=== PATIENT | female | born 1990 | race Two or more races ===

== ENCOUNTER 2021-12-06 22:13 | Emergency (ER) | payer SELFPAY ==
[~2021-12-06] VITALS: Ht 170.2 cm; Wt 61.0 kg
[2021-12-06 22:13] VITALS: BP 162/105
[2021-12-07 03:13] LABS: Urine Amorphous Crystal FEW /hpf (None Seen); Urine Bacteria MOD /hpf (None Seen); Urine Blood Negative /uL (Negative); Urine Mucus FEW (None Seen); Urine Specific Gravity 1.009 (1.001-1.035); Urine WBC 12 /hpf (0 - 5)
== END 2021-12-07 05:07 | disposition left against medical advice (07) ==
LOC: ER 22:13
DX: R10.9 Unspecified abdominal pain (principal); R20.2 Paresthesia of skin; Z53.21 Procedure and treatment not carried out due to patient leaving prior to being seen by health care provider
CPT/HCPCS: 81001; 81025

== ENCOUNTER 2021-12-25 20:35 | Emergency (ER) | payer MEDICAID, OTHER ==
[~2021-12-25] VITALS: Ht 165.1 cm; Wt 60.0 kg
[2021-12-25 23:20] LABS: Basophils # (auto) 0.1 10 ^3/uL (0-0.2); Basophils % (auto) 0.7 % (0.0-2.0); Eosinophils # (auto) 0.1 10 ^3/uL (0-0.8); Eosinophils % (auto) 0.7 % (0.0-7.0); Hematocrit 44.9 % (36.0-46.0); Hemoglobin 15.4 g/dL (12.2-16.2); Lymphocytes # (auto) 2.4 10 ^3/uL (0.4-5.4); Lymphocytes % (auto) 12.1 % (10.0-50.0); Mean Corpuscular Hgb Conc. 34.2 g/dL (32.0-36.0); Mean Corpuscular Volume 90.8 fL (80.0-100.0); Monocytes # (auto) 0.6 10 ^3/uL (0-1.3); Monocytes % (auto) 3.2 % (0.0-12.0); Neutrophils # (auto) 16.4 10 ^3/uL (1.6-8.6); Neutrophils % (auto) 83.3 % (37.0-80.0); Nucleated Red Blood Cells % 0.1 %; Red Blood Cells 4.95 10^6/uL (4.0-5.20); Red Cell Distribution Width 13.2 % (11.8-14.3); White Blood Cell 19.7 10^3/uL (4.4-10.8)
[2021-12-25 23:26] LABS: Albumin 3.6 g/dL (3.4-5.0); Calcium 8.5 mg/dL (8.5-10.1); Potassium 4.2 mmol/L (3.5-5.1)
[2021-12-25 23:28] LABS: BUN/Creatinine Ratio 7.6
[2021-12-25 23:30] LABS: Bilirubin, Total 0.2 mg/dL (0.2-1.0); Total Protein 7.8 g/dL (6.4-8.2)
[2021-12-26] MEDS ORDERED: THIAMINE 100mg/ml INJ (200mg/2ml VIAL) IV ONE (03:00)
[2021-12-26] MEDS ORDERED: SODIUM CHLORIDE 0.9% 1,000 ML IV ONE ×2 (03:00)
[2021-12-26] MEDS ORDERED: cefTRIAXone 1GM/50ML D5W 50 ML IV ONE (03:00)
[2021-12-26 06:10] VITALS: BP 108/63
== END 2021-12-26 07:56 | disposition home or self-care (01) ==
LOC: EDUNIT# 20:35 → EDBD 20:35 → ER 20:35 → EDSEX 20:35 → ER 12-26 07:56
DX: F10.129 Alcohol abuse with intoxication, unspecified (principal); D72.829 Elevated white blood cell count, unspecified; R10.2 Pelvic and perineal pain; Z88.0 Allergy status to penicillin
CPT/HCPCS: 36415; 70450; 80053; 80320; 84702; 85025; 96365; 96375; 99284; J0696; J3411; J7030